=== PATIENT | female | born 1960 | race Caucasian/White ===

== ENCOUNTER → 2023-04-13 08:55 | Outpatient (CLI) | payer OTHER, SELFPAY ==
--- NOTE | ~2023-04-13 | MR_ITS ---
MRI of the left shoulder Technique: Axial proton-density fat-sat images, coronal proton density fat-sat and T2 fat-sat images, and sagittal T1-weighted and T2 fat-sat images were acquired. Clinical History: Pain Findings: No significant degenerative change at the AC joint. Cortical clavicular, coracoacromial, an d coracohumeral ligaments are intact. There is severe supraspinatus tendinosis, with suspected moderate partial thickness tearing at the po sterior aspect of the central tendon. There is mild infraspinatus tendinosis, without partial or full -thickness tear. Subscapularis tendon is intact, with mild tendinosis. Tendon of long head of the bic eps is intact. No definite labral tear identified. Inferior glenohumeral ligament is intact. No significant degenerative change or effusion of the gleno humeral joint. There is minimal fluid in the subacromial/subdeltoid bursa. No muscle atrophy or edema . Impression: Severe supraspinatus tendinosis with probable moderate grade partial thickness tearing at the posteri or aspect of the central tendon. No full-thickness tear evident. Minimal subacromial/subdeltoid bursitis. Reviewed, dictated and finalized at location . [facility] Impression: Severe supraspinatus tendinosis with probable moderate grade partial thickness tearing at the posterior aspect of the central tendon. No full-thickness tear e vident. Minimal subacromial/subdeltoid bursitis.
== END ==
PROVIDERS: PCP Internal Medicine; Visit Provider Orthopaedic Surgery
DX: S46.012A Strain of muscle(s) and tendon(s) of the rotator cuff of left shoulder, initial encounter (principal); M75.22 Bicipital tendinitis, left shoulder; M75.52 Bursitis of left shoulder
CPT/HCPCS: 73221